=== PATIENT | female | born 1995 | race Two or more races ===

== ENCOUNTER 2016-12-11 21:42 | Emergency (ER) | payer SELFPAY ==
[~2016-12-11] VITALS: Ht 152.4 cm; Wt 63.5 kg
[2016-12-11] MEDS ORDERED: HYDROcodone/APAP 5/325MG 1 TAB TABLET PO ONE (22:30)
[2016-12-11] MEDS ORDERED: HYDR-2758 PO (23:14)
--- NOTE | 2016-12-11 23:14 | PHYS DOC ---
Past Medical History Past Medical History: Other Additional Past Medical Histor: TUMOR OF [place] ORIGIN Additional Information: 2 CIGARETTES PER DAY Alcohol Use: None Drug Use: None Adult General Chief Complaint Chief Complaint: DIZZY/LIGHT HEADED HPI HPI 20-year-old female presenting to the emergency department with headache. It is a moderate pain that is in the frontal region and radiates down to the neck. His been present for about a month and she recently within the last few months was diagnosed with a tumor in her head. She reports she Is currently waiting on a blood test to decide whether they are going to do surgery or not. Review of systems is negative for fevers chills cough vision changes numbness weakness or tingling. All other review of systems is negative unless otherwise noted in history of present illness. ED course: 20-year-old female presenting to the emergency department with a headache with a known brain tumor. Patient does not have any information about this tumor with her today. She denies any changes in her neurologic exam. She does have a headache. Her headache was treated with oral Lortab in the emergency room. Head CT obtained. The patient was then discharged home in stable condition to follow up with their primary care physician over the next 2- 3 days. They were to return if their symptoms worsened or if they were concerned for any reason. [id number]-[id number] discharge instructions and return precautions were given. Patient's questions were answered to their satisfaction. Patient is comfortable plan. Review of Systems Review of Systems SEE ABOVE. Current Medications Current Medications Current Medications Medications (Trade) Dose Ordered Sig/Alexander Start Time Stop Time Status Last Admin Dose Admin Acetaminophen/ Hydrocodone Bitart (Lortab 5/325) 2 tab 1X ONCE 12/11/16 22:30 12/11/16 22:31 DC 12/11/16 22:24 2 TAB Allergies Allergies Allergies Coded Allergies Type Severity Reaction Last Updated Verified No Known Drug Allergies 12/11/16 No Physical Exam Physical Exam SEE ABOVE Constitutional: Well developed, well nourished, no acute distress, non-toxic appearance. [] HENT: Normocephalic, atraumatic, bilateral external ears normal, oropharynx moist, no oral exudates, nose normal. [] Eyes: PERRLA, EOMI, conjunctiva normal, no discharge. [] Neck: Normal range of motion, no tenderness, supple, no stridor. [] Cardiovascular:Heart rate regular rhythm, no murmur [] Lungs & Thorax: Bilateral breath sounds clear to auscultation [] Abdomen: Bowel sounds normal, soft, no tenderness, no masses, no pulsatile masses. [] Skin: Warm, dry, no erythema, no rash. [] Back: No tenderness, no CVA tenderness. [] Extremities: No tenderness, no cyanosis, no clubbing, ROM intact, no edema. [] Neurologic: Mental status: Awake oriented and alert x3 Cranial nerves: Extraocular movements intact, eyebrows gabriele bilaterally smile symmetric, uvula elevation, shoulder shrug intact, tongue protrusion normal DTRs: 2+ Sensation: equal and normal in all extremities Strength: 5/5 in upper and lower extremities bilaterally Psychologic: Affect normal, judgement normal, mood normal. [] Current Patient Data Vital Signs Vital Signs Date Time Temp Pulse Resp B/P (MAP) Pulse Ox O2 Delivery O2 Flow Rate FiO2 12/11/16 22:24 20 100 Room Air 12/11/16 21:55 98.5 73 119/70 (86) 98.5 Lab Values Laboratory Tests Test 12/11/16 21:07 POC Urine HCG, Qualitative Hcg negative (Negative) EKG EKG [] Radiology/Procedures Radiology/Procedures [] Course & Med Decision Making Course & Med Decision Making Pertinent Labs and Imaging studies reviewed. (See chart for details) [] Dragon Disclaimer Dragon Disclaimer This electronic medical record was generated, in whole or in part, using a voice recognition dictation system. Departure Departure Impression: Primary Impression: Headache Additional Impression: Brain tumor Disposition: HOME, SELF-CARE Condition: STABLE Referrals: NON,STAFF (PCP) BARBARA AVILA MD Patient Instructions: General Headache Without Cause Additional Instructions: Thank you for allowing us to participate in your care today. Followup with your primary care physician in 3 days if your symptoms do not improve. Call your Primary Doctor tomorrow and inform them of your visit today. If you do not have a primary care provider you can ask for a list of our primary care providers. Return to the emergency department you have any new or concerning findings. This should be evaluated by the primary care physician and any necessary consulting services for continued management within a few days after discharge. Return to emergency room if you have any new or concerning symptoms including but not limited to fever, chills, nausea, vomiting, intractable pain, any new rashes, chest pain, shortness of air, uncontrolled bleeding, difficulty breathing, and/or vision loss. You may have been prescribed medication that can change in your level of thinking and ability to operate machinery. These medications include hydrocodone and Ativan. Also, Benadryl has been known to do this as well. Be sure to check with your pharmacist and ask if the medications you've prescribed can affect your level of consciousness. I recommend not operating heavy machinery or driving while on medication such as these. Scripts Hydrocodone Bit/Acetaminophen (HYDROCODONE-APAP 5-325 ) 1 Each Tablet 1 TAB PO PRN Q6HRS Y for PAIN, #15 TAB 0 Refills Be careful as this medication may cause you to be drowsy or tired. Do not drive on this medication. Prov: ANA ALFARO MD 12/11/16 Problem Qualifiers ANA ALFARO MD Dec 11, 2016 23:14
--- NOTE | 2016-12-11 23:50 | RAD ---
CT head without contrast TECHNIQUE: 5 mm axial noncontrast imaging skull base to vertex. HISTORY: Headache and dizziness. FINDINGS: No intracranial hemorrhage, mass, hydrocephalus, extra-axial fluid collections or infarction. No acute ischemic changes. Orbits, paranasal sinuses, mastoids and bones are unremarkable. IMPRESSION: No acute intracranial CT abnormality. Exposure: One or more of the following individualized dose reduction techniques were utilized for this examination: 1. Automated exposure control 2. Adjustment of the mA and/or kV according to patient size 3. Use of iterative reconstruction technique Electronically signed by: Conner Ortega MD (12/11/2016 11:47 PM) [id number]
[2016-12-12 00:20] VITALS: BP 109/55
== END 2016-12-12 00:20 | disposition home or self-care (01) ==
LOC: ER 21:42
DX: D49.6 Neoplasm of unspecified behavior of brain (principal); F17.210 Nicotine dependence, cigarettes, uncomplicated
CPT/HCPCS: 70450; 81025; 99284-25